=== PATIENT | female | born 1980 | race American Indian/Alaskan Native ===

== ENCOUNTER 2016-09-28 11:53 | Emergency (ER) | payer MEDICARE ==
[2016-09-28 12:16] VITALS: BP 118/75
[2016-09-28 12:46] LABS: Basophils % (Auto) 0.4 % (0.0-1.8); Eosinophils % (Auto) 0.5 % (0.0-4.3); Hematocrit 35.7 % (30.3-42.9); Hemoglobin 11.6 gm/dl (10.1-14.3); Mean Corpuscular HGB Conc 32 % (30-34); Mean Corpuscular Volume 72 fl (79-97); Platelet Count 390 K/mm3 (140-440); Red Blood Count 4.95 M/mm3 (3.65-5.03); Red Cell Distribution Width 14.9 % (13.2-15.2); Reticulocyte % 2.91 % (0.78-2.58); White Blood Count 11.7 K/mm3 (4.5-11.0)
[2016-09-28 12:53] LABS: Mean Corpuscular Hemoglobin 23 pg (28-32)
[2016-09-28] MEDS ORDERED: D5NS 0.2% 1,000 ML IV SCH (13:00)
--- NOTE | 2016-10-03 01:24 | ED Elopement Review ---
ED Pt Elopement review - Results review Lab results: Laboratory Tests 09/28/16 12:27 WBC 11.7 H RBC 4.95 Hgb 11.6 Hct 35.7 MCV 72 L MCH 23 L MCHC 32 RDW 14.9 Plt Count 390 Lymph % (Auto) 22.5 [place] % (Auto) 6.4 Eos % (Auto) 0.5 Baso % (Auto) 0.4 Lymph # 2.6 [place] # 0.7 Eos # 0.1 Baso # 0.1 Seg Neutrophils % 70.2 H Seg Neutrophils # 8.2 H Percent Retic 2.91 H - Call Back decision Pt Call Back Decision: No action required
== END 2016-09-28 19:45 | disposition left against medical advice (07) ==
LOC: ED 11:53
DX: D57.00 Hb-SS disease with crisis, unspecified (principal); Z72.0 Tobacco use; Z53.21 Procedure and treatment not carried out due to patient leaving prior to being seen by health care provider
CPT/HCPCS: 36415; 85025; 85045